=== PATIENT | female | born 1985 | race Caucasian/White ===

== ENCOUNTER 2016-06-24 18:10 | Emergency (ER) | payer OTHER ==
[~2016-06-24] VITALS: Ht 167.6 cm; Wt 108.0 kg
[~2016-06-24 18:10] MED LIST: BENADRYL25 MG PO; BENADRYL59 ML TP; CLEOCIN150 MG PO; FLONASE16 G1 BOTH NARES; HYDROCODON-ACE1 EAC7 PO; ILOTYCIN1 GM LEFT EYE; LEXAPRO10 MG PO; LIDOCAINE-HC 2100 GM RC; MEDROL DOSEPAK4 MG PO; Motrin PO; No Home Meds; Ortho Tri-Cyclen 28, PO; PRILOSEC40 MG PO; PROMETHAZINE HC25 M1 PO; PROVENTIL HFA6.7 GM IH; PROVENTIL,2.5 MG/0.5 IH; TRAMADOL HCL50 MG PO; VENTOLIN HFA18 GM IH; ZANTAC150 MG PO; ZITHROMAX Z-PA250 MG PO; ZOLOFT50 M1 PO; ZYRTEC10 M3 PO
[2016-06-24] MEDS ORDERED: MOTRIN800 MG PO (19:35)
[2016-06-24] MEDS ORDERED: PERCOCET 5/31 TABLET PO (19:35)
[2016-06-24 19:50] VITALS: BP 120/84
== END 2016-06-24 19:53 | disposition home or self-care (01) ==
LOC: EME 18:10 → EXP 18:10
DX: S50.02XA Contusion of left elbow, initial encounter (principal); W10.9XXA Fall (on) (from) unspecified stairs and steps, initial encounter; Z87.891 Personal history of nicotine dependence
CPT/HCPCS: 73080; 99281; 99284

== ENCOUNTER 2016-09-23 08:17 | Emergency (ER) | payer OTHER ==
[~2016-09-23] VITALS: Ht 170.2 cm; Wt 115.1 kg
[~2016-09-23 08:17] MED LIST changes: +MOTRIN800 MG PO; +PERCOCET 5/31 TABLET PO
[2016-09-23 10:01] LABS: ADD MIUA? YES; BILIRUBIN NEGATIVE; BLOOD NEGATIVE; COLOR STRAW ((YELLOW)); GLUCOSE (STRIP) NEGATIVE; KETONES NEGATIVE; LEUKOCYTES NEGATIVE; NITRITE NEGATIVE; PROTEIN (STRIP) NEGATIVE; SPECIFIC GRAVITY 1.009 (1.000-1.030); UROBILINOGEN 0.2 MG/DL (0.2-1.0)
[2016-09-23 10:09] LABS: BACTERIA NONE SEEN /HPF; EPITHELIAL CELLS 1+ /HPF; MUCUS TRACE /LPF; RED BLOOD CELLS 0-5 /HPF (0-5); UCUL ADDED? NO; WHITE BLOOD CELLS 0-5 /HPF (0-5)
[2016-09-23 10:33] LABS: EOSINOPHIL (%) 2.5 % (0-5); EOSINOPHIL COUNT 0.2 K/uL (0-0.3); HEMATOCRIT 41.6 % (36.0-46.0); IMMATURE GRANULOCYTE (%) 0.3 % (0.0-0.7); LYMPHOCYTE COUNT 2.6 K/uL (1.0-2.8); MCH 29.6 PG (29.0-34.0); MCHC 32.7 G/DL (30.0-36.0); MCV 90.4 FL (83-99); MONOCYTE (%) 5.9 % (3-12); MONOCYTE COUNT 0.4 K/uL (0-0.8); NEUTROPHIL (%) 48.6 % (45-76); PLATELET COUNT 226 K/uL (156-360); RBC DIS.WIDTH-CV 12.9 % (11.8-14.6); RBC DIS.WIDTH-SD 42.4 % (39-53); WHITE BLOOD COUNT 6.1 K/uL (4.1-10.2)
[2016-09-23 10:48] LABS: CHLORIDE 110 mEq/L (99-109); POTASSIUM 3.9 mEq/L (3.7-5.4); SODIUM 140 mEq/L (136-147)
[2016-09-23 10:50] LABS: GLUCOSE 102 mg/dL (70-99)
[2016-09-23 10:52] LABS: ANION GAP 7 MEQ/L (2-14)
[2016-09-23 10:54] LABS: GFR ESTIMATE (CALCULATED) > 59 mL/min/
[2016-09-23 10:55] LABS: UREA NITROGEN (BUN) 8 mg/dL (9-23)
[2016-09-23] MEDS ORDERED: PREDNISONE50 MG PO (13:04)
[2016-09-23] MEDS ORDERED: ZITHROMAX Z-PA250 MG PO (13:04)
[2016-09-23 13:11] VITALS: BP 121/80
== END 2016-09-23 13:13 | disposition home or self-care (01) ==
LOC: EME 08:17
PROVIDERS: Emergency Medicine
DX: J45.901 Unspecified asthma with (acute) exacerbation (principal); J20.9 Acute bronchitis, unspecified; F17.210 Nicotine dependence, cigarettes, uncomplicated
CPT/HCPCS: 71020; 80048; 81003; 85025; 94640; 94640 76; 99281; 99284; J7512

== ENCOUNTER 2017-04-11 08:55 | Emergency (ER) | payer OTHER ==
[~2017-04-11] VITALS: Ht 167.6 cm; Wt 117.2 kg
[~2017-04-11 08:55] MED LIST changes: +PREDNISONE50 MG PO
[2017-04-11] MEDS ORDERED: ZITHROMAX Z-PA250 MG PO (12:18)
[2017-04-11] MEDS ORDERED: PROVENTIL HFA6.7 GM IH (12:18)
[2017-04-11] MEDS ORDERED: PREDNISONE50 MG PO (12:18)
[2017-04-11 12:32] VITALS: BP 111/71
== END 2017-04-11 12:39 | disposition home or self-care (01) ==
LOC: EME 08:55
DX: J20.9 Acute bronchitis, unspecified (principal); R06.2 Wheezing; F17.210 Nicotine dependence, cigarettes, uncomplicated; F32.9 Major depressive disorder, single episode, unspecified
CPT/HCPCS: 71020; 94640; 99281; 99284

== ENCOUNTER 2017-10-24 13:49 | Emergency (ER) | payer OTHER ==
[~2017-10-24] VITALS: Ht 162.6 cm; Wt 116.0 kg
[2017-10-24] MEDS ORDERED: MOTRIN600 MG PO (16:11)
[2017-10-24] MEDS ORDERED: NORCO 5/3251 TABLET PO (16:11)
[2017-10-24 16:36] VITALS: BP 126/77
== END 2017-10-24 16:36 | disposition home or self-care (01) ==
LOC: EME 13:49
DX: S30.1XXA Contusion of abdominal wall, initial encounter (principal); W50.1XXA Accidental kick by another person, initial encounter
CPT/HCPCS: 99281; 99283